=== PATIENT | female | born 1990 | race Two or more races ===

== ENCOUNTER 2019-06-08 08:54 | Outpatient (CLI) | payer OTHER | END 2019-06-08 13:31 | disposition home or self-care (01) | LOC: MAMO-SONO 08:54 | DX: D05.11 Intraductal carcinoma in situ of right breast (principal); Z12.31 Encounter for screening mammogram for malignant neoplasm of breast; Z87.898 Personal history of other specified conditions ==

== ENCOUNTER 2019-07-09 08:22 | Outpatient (CLI) | payer OTHER | END 2019-07-09 08:28 | disposition home or self-care (01) | LOC: SONOGRAMA 08:22 → MAMO-SONO 07-10 07:45 | DX: N64.4 Mastodynia (principal); N63.0 Unspecified lump in unspecified breast ==

== ENCOUNTER 2019-07-20 08:35 | Outpatient (CLI) | payer OTHER | END 2019-07-20 09:00 | disposition home or self-care (01) | LOC: LAB 08:35 | DX: A64 Unspecified sexually transmitted disease (principal); D50.0 Iron deficiency anemia secondary to blood loss (chronic); E55.9 Vitamin D deficiency, unspecified; R42 Dizziness and giddiness ==

== ENCOUNTER 2020-06-09 11:59 | Emergency (ER) | payer OTHER ==
[~2020-06-09] VITALS: Ht 154.9 cm; Wt 54.4 kg
== END 2020-06-09 15:15 | disposition home or self-care (01) ==
LOC: ER 11:59
DX: R42 Dizziness and giddiness (principal); Z20.828 Contact with and (suspected) exposure to other viral communicable diseases

== ENCOUNTER 2021-06-13 10:00 | Outpatient (CLI) | payer OTHER | END 2021-06-13 10:30 | disposition home or self-care (01) | LOC: PPH VACUNA 10:00 | PROVIDERS: ATTEND Emergency Medicine Pediatric Emergency Medicine | DX: Z23 Encounter for immunization (principal) ==

== ENCOUNTER 2022-03-25 10:46 | Emergency (ER) | payer OTHER ==
[~2022-03-25] VITALS: Ht 154.9 cm; Wt 63.5 kg
== END 2022-03-25 13:57 | disposition home or self-care (01) ==
LOC: ER 10:46
DX: R07.89 Other chest pain (principal); Z88.4 Allergy status to anesthetic agent

== ENCOUNTER 2022-08-14 13:05 | Emergency (ER) | payer OTHER ==
[~2022-08-14] VITALS: Ht 185.4 cm; Wt 65.3 kg
== END 2022-08-14 21:26 | disposition home or self-care (01) ==
LOC: ER 13:05
DX: K62.5 Hemorrhage of anus and rectum (principal); Z88.6 Allergy status to analgesic agent